=== PATIENT | female | born 1965 | race African-American/Black ===

== ENCOUNTER 2018-11-10 22:31 | Inpatient (IN) | payer MEDICARE, OTHER ==
[~2018-11-10] VITALS: Ht 157.5 cm; Wt 73.5 kg
--- NOTE | 2018-11-10 22:46 | NUR ---
BIB EMS C/O SUBSTERNAL CP WITH PALPITATION X20 MIN AUTOMOTIVE GENERAL SALES MANAGER. GIVEN ASP 324MG PO AND NITRO SPRAY X3 BY EMS AUTOMOTIVE GENERAL SALES MANAGER WITH RELIEF ON ROUTE BUT COMPLAINING OF 9/10 CP ON ARRIVAL TO BED 4 RESTING COMFORTABLY, EKG SR AWAITING MED EVAL
[2018-11-10] MEDS ORDERED: IV NS 0.9% 500 ML BAG IV ONE (23:00)
[2018-11-10 23:05] LABS: BASOPHILS # (AUTO) 0.1 /CMM (0.0-0.2); BASOPHILS % (AUTO) 0.9 % (0.0-2.0); EOSINOPHILS % (AUTO) 0.3 % (0.0-6.0); HEMATOCRIT 37 % (33-45); HEMOGLOBIN 12.7 g/dL (11.5-14.8); LYMPHOCYTES # (AUTO) 2.4 /CMM (0.8-4.8); LYMPHOCYTES % (AUTO) 18.2 % (20.0-44.0); MEAN CORPUSCULAR HGB CONC 35 g/dl (31.0-36.0); MEAN CORPUSCULAR VOLUME 87 fL (82-100); MONOCYTES # (AUTO) 0.8 /CMM (0.1-1.30); MONOCYTES % (AUTO) 6.3 % (2.0-12.0); NEUTROPHILS # (AUTO) 9.7 /CMM (1.8-8.9); NEUTROPHILS % (AUTO) 74.3 % (43.0-81.0); PLATELET COUNT (AUTO) 585 /CMM (150-450); WHITE BLOOD COUNT (AUTO) 13.1 K/uL (4.3-11.0)
--- NOTE | 2018-11-10 23:07 | NUR ---
BLOOD DRAWN AND SENT TO LAB
[2018-11-10 23:28] LABS: CALCIUM, SERUM 9.5 mg/dL (8.5-10.1); CREATININE 1.3 mg/dL (0.6-1.3)
[2018-11-10 23:29] LABS: POTASSIUM 2.7 mmol/L (3.5-5.1)
[2018-11-10] MEDS ORDERED: POTASSIUM CL. PREMIX PERIPHER. 50 ML ONE (23:45)
[2018-11-10] MEDS ORDERED: POTASSIUM CHLORIDE 20 MEQ TAB.PRT.SR PO ONE (23:45)
[2018-11-11] MEDS ORDERED: POTASSIUM CHLORIDE 20 MEQ TAB.PRT.SR PO ONE
[2018-11-11] MEDS ORDERED: POTASSIUM CHLORIDE 10 MEQ/50 ML PREMIXED IVPB FOR PERIPHERAL LINE IV ONE
[2018-11-11] MEDS ORDERED: ACETAMINOPHEN 325 MG TABLET ONE (00:26)
[2018-11-11] MEDS ORDERED: ACETAMINOPHEN 325 MG TABLET PO ONE (00:30)
[2018-11-11] MEDS ORDERED: ONDANSETRON HCL/PF 4 MG/2 ML VIAL IVP PRN (00:30)
[2018-11-11] MEDS ORDERED: ACETAMINOPHEN 325 MG TABLET PO PRN (00:30)
[2018-11-11] MEDS ORDERED: MAG HYDROX/AL HYDROX/SIMETH 30 ML UDC PO PRN (00:30)
[2018-11-11] MEDS ORDERED: MAGNESIUM HYDROXIDE 30 ML UDC PO PRN (00:30)
[2018-11-11] MEDS ORDERED: Z GUARD REMEDY 2 OZ OINT TP PRN (00:30)
--- NOTE | 2018-11-11 00:32 | NUR ---
ER SPOKE TO RYAN BRANHAM REGARDING PT ADMISSION.
--- NOTE | 2018-11-11 00:46 | NUR ---
REPORT CALLED TO [employer] SUPERVISOR AMY. WILL TRANSPORT PT VIA ACLS PROTOCOL.
--- NOTE | 2018-11-11 01:24 | NUR ---
PT TAKEN UP TO 322 VIA ACLS PROTOCOL
[2018-11-11] MEDS: IV NS 0.9% 1,000 ML IV PRN ×3 (01:25→18:23)
--- NOTE | 2018-11-11 01:30 | NUR ---
MS TELE ADMISSION NOTES RECEIVE PATIENT FROM ER VIA GURNEY ACCOMPANIED BY ER STAFF, ALERT AND ORIENTED X 4. AMBULATES WITH ASSIST, VERBALLY RESPONSIVE AND ABLE TO FOLLOW DIRECTIONS. BREATHING REGULAR AND UNLABORED ON ROOM AIR. RIGHT AC G 20 IV LINE INTACT AND PATENT, FLUSHING WELL WITH NO BLEEDING AND S/S OF INFECTION/INFILTRATION NOTED. STARTED ON NORMAL SALINE AT 75ml/hr, INFUSING WELL. BODY ASSESSMENT DONE, SEEN WITH BOTH LOWER LEG DRY SCABS. PHOTO TAKEN, KEPT IN THE CHART. ATTACHED TO BOTTOM BUFFER WITH NORMAL SINUS RHYTHM AT 96bpm. MAINTAINED NOTHING BY MOUTH. COMPLAINED OF 6/10 HEADACHE, NORCO GIVEN BY MOUTH. NON-PHARMACOLOGICAL INTERVENTIONS PROVIDED. BELONGINGS CHECKED AND DOCUMENTED. BED LOW AND LOCKED ON SEMI FOWLERS POSITION. WILL CONTINUE TO MONITOR.
[2018-11-11] MEDS: HYDROCODONE/APAP 5/325MG 1 EACH TABLET PO PRN ×2 (01:39→07:37)
[2018-11-11 01:48] VITALS: BP 132/82
[2018-11-11 06:20] LABS: BASOPHILS # (AUTO) 0.1 /CMM (0.0-0.2); BASOPHILS % (AUTO) 1.1 % (0.0-2.0); EOSINOPHILS % (AUTO) 1.1 % (0.0-6.0); HEMATOCRIT 37 % (33-45); HEMOGLOBIN 12.5 g/dL (11.5-14.8); LYMPHOCYTES # (AUTO) 2.8 /CMM (0.8-4.8); LYMPHOCYTES % (AUTO) 25.3 % (20.0-44.0); MEAN CORPUSCULAR HGB CONC 34 g/dl (31.0-36.0); MEAN CORPUSCULAR VOLUME 87 fL (82-100); NEUTROPHILS % (AUTO) 63.5 % (43.0-81.0); PLATELET COUNT (AUTO) 543 /CMM (150-450); RED BLOOD CELL COUNT(AUTO) 4.24 MIL/uL (4.0-5.2)
--- NOTE | 2018-11-11 06:26 | NUR ---
MS TELE CLOSING NOTES PATIENT IN BED ALERT AND ORIENTED X 4. VERBALLY RESPONSIVE AND ABLE TO FOLLOW DIRECTIONS. BREATHING REGULAR AND UNLABORED ON ROOM AIR. RIGHT AC G 20 IV LINE INTACT AND PATENT, INFUSING WELL WITH NO BLEEDING AND S/S OF INFECTION/INFILTRATION NOTED. MAINTAINED ON READING INTERVENTION TEACHER WITH NORMAL SINUS RHYTHM AT 95bpm. MAINTAINED NOTHING BY MOUTH. NO COMPLAINTS OF PAIN/DISCOMFORT OF THE TIME.. BED LOW AND LOCKED ON SEMI FOWLERS POSITION. WILL ENDORSE TO MORNING SHIFT FOR HENRY.
[2018-11-11] MEDS ORDERED: AMIT150T PO (06:41)
[2018-11-11 06:49] LABS: CALCIUM, SERUM 8.8 mg/dL (8.5-10.1); CREATININE 1.1 mg/dL (0.6-1.3); POTASSIUM 3.4 mmol/L (3.5-5.1)
[2018-11-11 06:50] LABS: ALBUMIN 3.6 g/dL (3.4-5.0); BILIRUBIN,TOTAL 0.4 mg/dL (0.2-1.0); MAGNESIUM 2.4 mg/dL (1.8-2.4); PHOSPHORUS 3.6 mg/dL (2.5-4.9); TOTAL PROTEIN, SERUM 7.6 g/dL (6.4-8.2)
[2018-11-11 06:56] LABS: THYROID STIMULATING HORMONE 1.543 uIU/mL (0.358-3.74)
[2018-11-11] MEDS ORDERED: DULO30CA2 PO (06:58)
[2018-11-11] MEDS ORDERED: lidocaine patch (06:58)
[2018-11-11] MEDS ORDERED: TRIA1TAB3 PO (06:58)
[2018-11-11] MEDS ORDERED: LIDOCAINE 5% (PATCH) 1 EA PATCH TP SCH (07:00)
--- NOTE | 2018-11-11 07:30 | NUR ---
[employer] CASE MANAGER OPENING NOTES RECEIVED PT AWAKE, IN BED. A/O X3. TOLERATING RA, WITH NO ACUTE RESPIRATORY DISTRESS NOTED PT STATING PAIN OF 9/10 ON LEFT CHEST, ANTERIOR AREA, NO RADIATING PAIN ADDED. ON TELEMONITORING ST OF 104, PER EMPLOYEE BENEFITS COORDINATOR PT WAS SR RANGES TO 90S LAST NIGHT. IVF NS AT 75ML/HR TO RAC G20, INTACT AND FLUID INFUSING WELL. PT HAS A CONCERN OF GOING HOME TODAY, PT NEEDS TO BE SEEN BY MD FIRST AND WILL UPDATE FOR PLAN OF CARE. PT'S BED IN LOWEST, LOCKED POSITION WITH SR X2. CALL LIGHT KEPT WITHIN REACH. WILL CONTINUE PLAN OF CARE.
[2018-11-11 08:00] VITALS: BP 121/80
[2018-11-11] MEDS ORDERED: DULOXETINE HCL 30 MG CAPSULE.DR PO SCH (09:00)
--- NOTE | 2018-11-11 10:00 | NUR ---
SCHEDULING ANALYST NOTES IV RESTARTED TO LFA G20, FLUSHED WITH NS, INTACT AND OPERATIONAL. DISCONTINUED RAC G18, DISLODGED.
[2018-11-11] MEDS: POTASSIUM CHLORIDE 20 MEQ TAB.PRT.SR PO SCH ×3 (10:02→12:25)
[2018-11-11] MEDS: ASPIRIN 81 MG TAB.CHEW PO SCH (10:02)
--- NOTE | 2018-11-11 10:15 | NUR ---
WELDER PLASMA ARC NOTES PT SIGNED WRITTEN CONSENT FOR [facility]. PT AWARE OF PROCEDURE. WILL CONTINUE TO MONITOR.
[2018-11-11 12:00] VITALS: BP 132/83
[2018-11-11] MEDS: METOPROLOL TARTRATE 50 MG TABLET PO SCH ×2 (12:25→18:18)
--- NOTE | 2018-11-11 12:40 | NUR ---
MS KILEY NOTES PT COMPLAINED OF LOCALIZED CHEST PAIN ON ANTERIOR AREA OF CHEST. LEFT TOES NUMBNESS AND SLIGHT BLURRY VISION ON LEFT SIDE OF EYE. NO BALANCE PROBLEM, PT ABLE TO GO TO THE BATHROOM WITH STEADY GAIT. PT DENIES HEADACHE, N/V. HOSPITALIST BOILER TUBE BLOWER/LW IN THE UNIT AND MADE AWARE. NO NEW ORDERS FOR NOW. KEEP PT NPO AND WAIT FOR CTCA TO BE DONE. PT MADE AWARE WELL. WILL CONTINUE TO MONITOR. Addendum: 11/11/18 at 1254 by TARUN MEJIA RN EWELINA CAO NOTES* NOT MS
[2018-11-11] MEDS ORDERED: IOHEXOL-350 100 ML VIAL IV ONE (12:53)
--- NOTE | 2018-11-11 12:55 | NUR ---
FLORAL ASSOCIATE NOTES PT WENT TO [facility] PROCEDURE. TRANSPORTED VIA WHEELCHAIR. LEFT THE UNIT AT 1255.
[2018-11-11] MEDS ORDERED: METOPROLOL TARTRATE INJ 5 MG/5 ML AMPUL ONE ×3 (12:56→13:30)
[2018-11-11] MEDS ORDERED: NITROGLYCERIN 0.4 MG/TAB BOTTLE SL ONE ×2 (13:00→14:30)
[2018-11-11] MEDS: METOPROLOL TARTRATE INJ 5 MG/5 ML AMPUL IVP PRN ×10 (13:03→13:48)
--- NOTE | 2018-11-11 13:04 | NUR ---
TECHNICAL PHOTOGRAPHER NOTES LW ORDERED NITRO SL BEFORE SCAN SCHEDULED AT 1300. PT LEFT TO DO SCAN AT 1255. BENEFITS CLERK/LW MADE AWARE MED NOT GIVEN BEFORE SCAN.
[2018-11-11 16:00] VITALS: BP 122/75
[2018-11-11] MEDS ORDERED: AMITRIPTYLINE HCL 50 MG TABLET PO SCH (18:00)
--- NOTE | 2018-11-11 19:38 | NUR ---
ms CAO OPENING NOTES RECEIVED PT AWAKE, IN BED. A/O X3. TOLERATING RA, WITH NO ACUTE RESPIRATORY DISTRESS NOTED PT STATING PAIN OF 9/10 ON LEFT CHEST, ANTERIOR AREA, NO RADIATING PAIN ADDED. ON TELEMONITORING ST OF 104, PER CLIENT RELATION SPECIALIST PT WAS SR RANGES TO 90S LAST NIGHT. IVF NS AT 75ML/HR TO RAC G20, INTACT AND FLUID INFUSING WELL. PT HAS A CONCERN OF GOING HOME TODAY, PT NEEDS TO BE SEEN BY MD FIRST AND WILL UPDATE FOR PLAN OF CARE. PT'S BED IN LOWEST, LOCKED POSITION WITH SR X2. CALL LIGHT KEPT WITHIN REACH. WILL CONTINUE PLAN OF CARE. Addendum: 11/11/18 at 1939 by TARUN MEJIA RN WRONG DOCUMENTATION
--- NOTE | 2018-11-11 19:39 | NUR ---
MS RN CLOSING NOTES PT AWAKE, IN BED. A/O X3. AMBULATORY. PT TOLERATING RA, WITH NO ACUTE RESPIRATORY DISTRESS NOTED PT DENIES ANY PAIN OR DISCOMFORT AT THIS TIME. IVF NS AT 75ML/HR TO RAC G20, INTACT AND FLUID INFUSING WELL. ALL NEEDS AND CARE ATTENDED. PT'S BED IN LOWEST, LOCKED POSITION WITH SR X2. CALL LIGHT KEPT WITHIN REACH. ENDORSED TO SALES TECHNICIAN NURSE FOR HENRY.
--- NOTE | 2018-11-11 19:40 | NUR ---
MS/RN NOTES RECEIVED PT. LYING IN BED. PT. IS AWAKE, ALERT AND ORIENTED X3. BREATHING EVEN AND UNLABORED ON ROOM AIR. NO SOB, RESPIRATORY DISTRESS OR COMPLAINTS OF PAIN NOTED AT THIS TIME. NO COMPLAINTS OF CHEST PAIN NOTED AT THIS TIME. PT. WITH LEFT FOREARM 20 GAUGE PERIPHERAL IV PRESENT, PATENT AND INTACT ADMINISTERING TO PT. NS @ 75 ML/HR. BED LOCKED AND IN LOWEST POSITION, SIDE RAILS UP X2, CALL LIGHT WITHIN REACH, WILL CONTINUE TO MONITOR.
[2018-11-11 20:00] VITALS: BP 138/85
[2018-11-11] MEDS ORDERED: AMITRIPTYLINE HCL 25 MG TABLET PO SCH (22:00)
[2018-11-12] MEDS: IV NS 0.9% 1,000 ML IV PRN (05:12)
[2018-11-12] MEDS: METOPROLOL TARTRATE 50 MG TABLET PO SCH ×4 (05:52→18:00)
--- NOTE | 2018-11-12 06:06 | NUR ---
MS/RN NOTES PT. IS LYING IN BED RESTING. BREATHING EVEN AND UNLABORED ON ROOM AIR. NO SOB, RESPIRATORY DISTRESS OR COMPLAINTS OF PAIN NOTED AT THIS TIME. NO COMPLAINTS OF CHEST PAIN NOTED AT THIS TIME AND THROUGHOUT SHIFT. PT. WITH LEFT FOREARM 20 GAUGE PERIPHERAL IV PRESENT, PATENT AND INTACT ADMINISTERING TO PT. NS @ 75 ML/HR. ALL PT. NEEDS MET. BED LOCKED AND IN LOWEST POSITION, SIDE RAILS UP X2, CALL LIGHT WITHIN REACH, WILL ENDORSE TO DAYSHIFT NURSE FOR CONTINUITY OF CARE.
[2018-11-12 06:52] LABS: BASOPHILS # (AUTO) 0.1 /CMM (0.0-0.2); BASOPHILS % (AUTO) 1.1 % (0.0-2.0); EOSINOPHILS % (AUTO) 8.6 % (0.0-6.0); HEMATOCRIT 37 % (33-45); HEMOGLOBIN 12.7 g/dL (11.5-14.8); LYMPHOCYTES % (AUTO) 37.2 % (20.0-44.0); MEAN CORPUSCULAR HGB CONC 34 g/dl (31.0-36.0); MEAN CORPUSCULAR VOLUME 88 fL (82-100); MONOCYTES # (AUTO) 0.6 /CMM (0.1-1.30); MONOCYTES % (AUTO) 7.7 % (2.0-12.0); NEUTROPHILS # (AUTO) 3.7 /CMM (1.8-8.9); NEUTROPHILS % (AUTO) 45.4 % (43.0-81.0); PLATELET COUNT (AUTO) 528 /CMM (150-450); RED BLOOD CELL COUNT(AUTO) 4.25 MIL/uL (4.0-5.2); WHITE BLOOD COUNT (AUTO) 8.1 K/uL (4.3-11.0)
[2018-11-12 08:00] VITALS: BP 122/70
--- NOTE | 2018-11-12 08:00 | NUR ---
Patient accidentally pulled out IV line
[2018-11-12] MEDS: ASPIRIN 81 MG TAB.CHEW PO SCH (08:36)
[2018-11-12 08:55] LABS: ALBUMIN 3.3 g/dL (3.4-5.0); BILIRUBIN,TOTAL 0.4 mg/dL (0.2-1.0); CREATININE 0.9 mg/dL (0.6-1.3); MAGNESIUM 2.1 mg/dL (1.8-2.4); PHOSPHORUS 3.5 mg/dL (2.5-4.9); POTASSIUM 3.9 mmol/L (3.5-5.1); TOTAL PROTEIN, SERUM 7.3 g/dL (6.4-8.2)
[2018-11-12] MEDS ORDERED: MAXZIDE TABLET 1 UDTAB TABLET PO SCH (09:00)
[2018-11-12] MEDS ORDERED: DULOXETINE HCL 30 MG CAPSULE.DR PO SCH (09:00)
[2018-11-12] MEDS ORDERED: CT SWABBABLE VALVE TRANS SET 1 EA INFUS.SET MC ONE (10:35)
[2018-11-12] MEDS ORDERED: IOHEXOL-300 100 ML VIAL IV ONE (10:35)
[2018-11-12] MEDS ORDERED: IV NS 0.9% 250 ML IV ONE (10:36)
--- NOTE | 2018-11-12 11:00 | NUR ---
A new IV line to the right arm g 24. flushing well
[2018-11-12 16:00] VITALS: BP 113/73
[2018-11-12] MEDS ORDERED: ACETYLCYSTEINE 10% 3,000 MG/30 ML VIAL PO SCH (17:30)
--- NOTE | 2018-11-12 19:12 | NUR ---
PT. IS LYING IN BED RESTING. BREATHING EVEN AND UNLABORED ON ROOM AIR. NO SOB, RESPIRATORY DISTRESS OR COMPLAINTS OF PAIN . PT. WITH RIGHT ARM 24 GAUGE PERIPHERAL IV , PATENT AND INTACT ADMINISTERING TO PT. NS @ 75 ML/HR. ALL PT. NEEDS MET. BED LOCKED AND IN LOWEST POSITION, SIDE RAILS UP X2, CALL LIGHT WITHIN REACH, WILL ENDORSE TO NEXT SHIFT FOR CONTINUITY OF CARE.
--- NOTE | 2018-11-12 19:27 | NUR ---
MS/RN NOTES RECEIVED PT. WALKING AROUND HER ROOM. PT. IS AWAKE, ALERT AND ORIENTED X4. BREATHING EVEN AND UNLABORED ON ROOM AIR. NO SOB, RESPIRATORY DISTRESS OR COMPLAINTS OF PAIN NOTED AT THIS TIME. PT. REMOVED HER IV ACCESS. NO S/S OF BLEEDING OR INFECTION NOTED AT PREVIOUS IV SITE. BED LOCKED AND IN LOWEST POSITION, SIDE RAILS UP X2, CALL LIGHT WITHIN REACH, WILL CONTINUE TO MONITOR.
[2018-11-12 20:00] VITALS: BP 149/90
--- NOTE | 2018-11-12 20:00 | NUR ---
MS/RN NOTES PT. IS ANXIOUS AND STATING THAT SHE DOESN'T WANT TO BE HERE ANYMORE SHE JUST WANTS TO GO HOME. PT. SAYS HER DAUGHTER IS WAITING FOR HER OUTSIDE. EDUCATED PT. ON BENEFITS VS RISKS OF LEAVING AGAINST MEDICAL ADVICE. PT. VERBALIZED UNDERSTANDING AND STILL WANTS TO LEAVE. PT. HAS NO IV ACCESS. NO S/S OF BLEEDING OR INFECTION NOTED AT PREVIOUS IV SITE. PT. ID BAND REMOVED. PT. SIGNED AMA FORM AND BELONGINGS LIST AND PLACED IN PT. CHART. PT. LEFT THE FLOOR AT 2000 IN STABLE CONDITION.
== END 2018-11-12 20:00 | disposition left against medical advice (07) | DRG 391 ==
LOC: ER 22:32 → TELE 11-11 00:26 → MED 11-11 16:20
PROVIDERS: ADMIT Registered Nurse; ATTEND Registered Nurse
DX: K21.9 Gastro-esophageal reflux disease without esophagitis (principal); I21.A1 Myocardial infarction type 2; E87.6 Hypokalemia; I10 Essential (primary) hypertension; F41.9 Anxiety disorder, unspecified; F32.9 Major depressive disorder, single episode, unspecified; Z87.891 Personal history of nicotine dependence; D72.829 Elevated white blood cell count, unspecified; E66.9 Obesity, unspecified; Z68.29 Body mass index [BMI] 29.0-29.9, adult; R59.0 Localized enlarged lymph nodes; R56.9 Unspecified convulsions
CPT/HCPCS: 36415; 70450-TC; 71045-TC; 71260-TC; 75574; 76641-TC; 80048-TC; 80053-TC; 80061-TC; 83615-TC; 83735-TC; 83880; 84100-TC; 84443-TC; 84484-TC; 85025-TC; 85730-TC; 86300; 87040-TC; 87081-TC; 93307-TC; 95819-TC; G0378; J3480; J3490; J7030; J7040; J7050; Q9967